=== PATIENT | female | born 1970 | race African-American/Black ===

== ENCOUNTER 2016-10-01 01:19 | Emergency (ER) | payer OTHER ==
[~2016-10-01] VITALS: Ht 160 cm; Wt 83.5 kg
[~2016-10-01 01:19] MED LIST: ATOR20TA58 PO; HYDR12.58 PO; IBUP-1060 PO; LISI20TA PO; LOSA50TA6 PO; OXYC1TAB7 PO; SIMV20TA3 PO
[2016-10-01] MEDS ORDERED: DEXAMETHASONE 4 MG TABLET PO ONE (02:30)
--- NOTE | 2016-10-01 03:05 | PHYS DOC ---
Past Medical History Past Medical History: Hypertension Past Surgical History: No Surgical History Alcohol Use: Rarely Drug Use: None Adult General Chief Complaint Chief Complaint: MULTIPLE COMPLAINTS HPI HPI Patient is a 45 year old female who presents with rhinorrhea, nasal congestion , sore throat, dry cough, myalgias, and chills for the past week. She also reports developing left eye redness without eye pain over the same timeline. She has been taking [id number]-ssh-[id number] medications such as Sudafed, NyQuil, and other cough medicines for her symptoms. She has not been taking any antihypertensives for years. She denies chest pain, headache, numbness, tingling , weakness, back pain, abdominal pain, nausea or vomiting, diarrhea. Review of Systems Review of Systems Constitutional: Denies measured fever [] Eyes: Denies change in visual acuity or eye pain [] HENT: Has nasal congestion and sore throat [] Respiratory: Denies shortness of breath [] Cardiovascular: No additional information not addressed in HPI [] GI: Denies abdominal pain, nausea, vomiting, bloody stools or diarrhea [] : Denies dysuria or hematuria [] Musculoskeletal: Denies back pain or joint pain [] Integument: Denies rash or skin lesions [] Neurologic: Denies headache, focal weakness or sensory changes [] Endocrine: Denies polyuria or polydipsia [] Current Medications Current Medications Current Medications Medications (Trade) Dose Ordered Sig/[facility] Start Time Stop Time Status Last Admin Dose Admin Dexamethasone (Decadron) 10 mg 1X ONCE 10/01/16 02:30 10/01/16 02:31 DC 10/01/16 02:21 10 MG Allergies Allergies Allergies Coded Allergies Type Severity Reaction Last Updated Verified No Known Drug Allergies 08/31/13 No Physical Exam Physical Exam Constitutional: Well developed, well nourished, no acute distress, non-toxic appearance. [] HENT: Normocephalic, atraumatic, bilateral TMs normal, oropharynx moist, few bilateral white oral exudates, nose normal. [] Eyes: PERRLA, EOMI, conjunctiva normal, no discharge. Mild left scleral injection [] Neck: Normal range of motion, supple, no stridor. [] Cardiovascular:Heart rate regular rhythm [] Lungs & Thorax: Bilateral breath sounds clear to auscultation [] Abdomen: Bowel sounds normal, soft, no tenderness. [] Skin: Warm, dry, no erythema, no rash. [] Back: No tenderness, no CVA tenderness. [] Extremities: ROM intact, no edema. [] Neurologic: Alert and oriented X 3, normal motor function, normal sensory function, no focal deficits noted. [] Psychologic: Affect normal, judgement normal, mood normal. [] Current Patient Data Vital Signs Vital Signs Date Time Temp Pulse Resp B/P Pulse Ox O2 Delivery O2 Flow Rate FiO2 10/01/16 03:20 81 202/114 98 Room Air 10/01/16 01:59 98.9 16 98.9 Lab Values Laboratory Tests Test 10/01/16 01:35 Group A Streptococcus Rapid Negative (NEGATIVE) Microbiology 10/01/16 Throat Culture - Preliminary, Resulted 10/01/16 - Preliminary, Resulted Course & Med Decision Making Course & Med Decision Making Rapid strep is negative. She has a constellation of symptoms concerning for viral pharyngitis and upper respiratory infection. Discussed she needs to quit taking rweg-irg-clfudgq medicines that cause worsening of her chronic uncontrolled hypertension. Discussed she needs to see her primary care doctor immediately to restart therapy. She states she has an appointment for this within a week. She does not want to undergo workup for her asymptomatic hypertension while in the emergency department. Discussed other avenues of symptomatic care such as nasal saline rinses, honey for cough, NSAIDs and Tylenol. Return precautions given. She understands and agrees with plan. Dragon Disclaimer Dragon Disclaimer This electronic medical record was generated, in whole or in part, using a voice recognition dictation system. Departure Departure Impression: Primary Impression: Upper respiratory infection Additional Impression: Uncontrolled hypertension Disposition: HOME, SELF-CARE Condition: STABLE Referrals: NO PCP (PCP) Patient Instructions: Upper Respiratory Infection, Adult, [id number] Additional Instructions: Take Tylenol or ibuprofen as needed for pain. You must follow-up with your primary care doctor to resume your blood pressure medicines. Return for any concerns. Problem Qualifiers Primary Impression: Upper respiratory infection URI type: unspecified viral URI Qualified Code: J06.9 - Acute upper respiratory infection, unspecified Andre ZARATE MD Oct 01, 2016 03:05
[2016-10-01 03:20] VITALS: BP 202/114
[2016-10-01 07:41] LABS: NEGATIVE OBC STREP NEG; POSITIVE OBC STREP POS
== END 2016-10-01 03:23 | disposition home or self-care (01) ==
LOC: ER 01:19
DX: J06.9 Acute upper respiratory infection, unspecified (principal); I10 Essential (primary) hypertension; H57.8 Other specified disorders of eye and adnexa
CPT/HCPCS: 87070; 87880; 99283; J8540

== ENCOUNTER 2017-11-23 19:16 | Emergency (ER) | payer SELFPAY, OTHER ==
[2017-11-23 19:44] LABS: ADD MAN DIFF? NO
[2017-11-23 19:48] LABS: BILIRUBIN,URINE NEGATIVE (NEG); CLARITY,URINE CLEAR; COLOR,URINE YELLOW; GLUCOSE,URINE NEGATIVE (NEG); NITRITE,URINE NEGATIVE (NEG); PROTEIN,URINE NEGATIVE (NEG-TRACE); UROBILINOGEN,URINE 0.2 mg/dL (0.2 mg/dL)
[2017-11-23 19:49] LABS: BASO # 0.1 x10^3/uL (0.0-0.2); BASO % 1 % (0-3); EOS # 0.3 x10^3/uL (0.0-0.7); EOS % 4 % (0-3); HEMATOCRIT 40.4 % (36.0-47.0); HEMOGLOBIN 13.1 g/dL (12.0-15.5); LYMPH # 3.1 x10^3/uL (1.0-4.8); LYMPH % 46 % (24-48); MEAN CORPUSCULAR HEMOGLOBIN 21 pg (25-35); MEAN CORPUSCULAR HGB CONC 32 g/dL (31-37); MEAN CORPUSCULAR VOLUME 64 fL (79-100); MONO # 0.5 x10^3/uL (0.0-1.1); MONO % 8 % (0-9); NEUT # 2.8 x10^3uL (1.8-7.7); NEUT % 42 % (31-73); PLATELET COUNT 313 x10^3/uL (140-400); RED BLOOD COUNT 6.35 x10^6/uL (3.50-5.40); RED CELL DISTRIBUTION WIDTH 18.5 % (11.5-14.5); WHITE BLOOD COUNT 6.7 x10^3/uL (4.0-11.0)
[2017-11-23] MEDS: ONDANSETRON PF 4 MG/2 ML VIAL. IV (19:53)
[2017-11-23 19:54] LABS: ANION GAP 10 (6-14); BLOOD UREA NITROGEN 14 mg/dL (7-20); BUN/CREATININE RATIO 18 (6-20); CALCIUM 9.3 mg/dL (8.5-10.1); CARBON DIOXIDE 27 mmol/L (21-32); CHLORIDE 104 mmol/L (98-107); CREATININE 0.8 mg/dL (0.6-1.0); GLUCOSE 104 mg/dL (70-99); POTASSIUM 4.4 mmol/L (3.5-5.1); SODIUM 141 mmol/L (136-145)
[2017-11-23] MEDS: KETOROLAC 30 MG/ML INJ. IV (19:54)
[2017-11-23 20:00] LABS: ALBUMIN 3.4 g/dL (3.4-5.0); ALBUMIN/GLOBULIN RATIO 0.9 (1.0-1.7); ALK PHOS 93 U/L (46-116); ALT (SGPT) 20 U/L (14-59); AST (SGOT) 14 U/L (15-37); LIPASE 359 U/L (73-393); TOTAL BILIRUBIN 0.3 mg/dL (0.2-1.0); TOTAL PROTEIN 7.4 g/dL (6.4-8.2)
[2017-11-23 20:02] LABS: TROPONINI 0.017 ng/mL (0.000-0.055)
[2017-11-23 20:13] LABS: RBC,URINE 0 /HPF (0-2)
[2017-11-23 20:14] LABS: BACTERIA,URINE MANY /HPF (0-FEW); SQUAMOUS EPITHELIAL CELL,UR OCC /LPF
[2017-11-23 21:11] LABS: PLT ESTIMATE ADEQUATE (ADEQUATE)
[2017-11-23 21:12] LABS: ANISOCYTOSIS SLIGHT; HYPOCHROMIA MARKED; MICROCYTOSIS MARKED; POIKILOCYTOSIS SLIGHT
== END 2017-11-23 21:37 | disposition home or self-care (01) ==
LOC: ER 19:16
DX: N12 Tubulo-interstitial nephritis, not specified as acute or chronic (principal); I10 Essential (primary) hypertension; E66.9 Obesity, unspecified; Z68.31 Body mass index [BMI] 31.0-31.9, adult
CPT/HCPCS: 36415; 80053; 81001; 83690; 84484; 85025; 87086; 93005; 96374; 96375; 99285-25; J1885; J2405

== ENCOUNTER 2019-02-02 11:57 | Emergency (ER) | payer BC, SELFPAY ==
[~2019-02-02] VITALS: Ht 160 cm; Wt 79.4 kg
[~2019-02-02 11:57] MED LIST changes: +CEPH-264 PO; +LOSA-73 PO; -LOSA50TA6 PO
[2019-02-02 12:12] VITALS: BP 167/117
[2019-02-02] MEDS ORDERED: FAMOTIDINE 20 MG TABLET. PO ONE (12:15)
[2019-02-02] MEDS ORDERED: predniSONE 10 MG TABLET PO ONE (12:15)
[2019-02-02] MEDS ORDERED: HYDR25TA PO (12:20)
[2019-02-02] MEDS ORDERED: BETA15OI6 TP (12:20)
[2019-02-02] MEDS ORDERED: METH4TAB2 PO (12:20)
--- NOTE | 2019-02-02 12:20 | PHYS DOC ---
Past Medical History Past Medical History: Hypertension Past Surgical History: No Surgical History Alcohol Use: Rarely Drug Use: None Adult General Chief Complaint Chief Complaint: SKIN PROBLEM HPI HPI Patient is a 48 year old female who presents with complaining of rash with itching. Patient states she developed a gradual onset pruritic rash 1 week ago after she worked at her yard. Patient denies fever and chills, shortness of breath, history of the same problem. Patient states she has painful area of rash because of itching. Review of Systems Review of Systems Constitutional: Denies fever or chills [] Eyes: Denies change in visual acuity, redness, or eye pain [] HENT: Denies nasal congestion or sore throat [] Respiratory: Denies cough or shortness of breath [] Cardiovascular: No additional information not addressed in HPI [] GI: Denies abdominal pain, nausea, vomiting, bloody stools or diarrhea [] : Denies dysuria or hematuria [] Musculoskeletal: Denies back pain or joint pain [] Integument: Reports rash and itching Neurologic: Denies headache, focal weakness or sensory changes [] Endocrine: Denies polyuria or polydipsia [] All other systems were reviewed and found to be within normal limits, except as documented in this note. Current Medications Current Medications Current Medications Medications (Trade) Dose Ordered Sig/[facility] Start Time Stop Time Status Last Admin Dose Admin Famotidine (Pepcid) 20 mg 1X ONCE 02/02/19 12:15 02/02/19 12:16 DC 02/02/19 12:22 20 MG Prednisone (Prednisone) 50 mg 1X ONCE 02/02/19 12:15 02/02/19 12:16 DC 02/02/19 12:22 50 MG Allergies Allergies Allergies Coded Allergies Type Severity Reaction Last Updated Verified No Known Drug Allergies 08/31/13 No Physical Exam Physical Exam Constitutional: Well developed, well nourished, mild distress, non-toxic appearance. [] HENT: Normocephalic, atraumatic. Eyes: PERRLA, EOMI, conjunctiva normal, no discharge. [] Neck: Normal range of motion, no tenderness, supple, no stridor. [] Cardiovascular:Heart rate regular rhythm, no murmur [] Lungs & Thorax: Bilateral breath sounds clear to auscultation [] Skin: Warm, dry, no erythema, marked area of insect bite rash in lower and upper extremity and abdominal wall and groin area without sign of infection Back: No tenderness, no CVA tenderness. [] Extremities: No tenderness, no cyanosis, no clubbing, ROM intact, no edema. [] Neurologic: Alert and oriented X 3, normal motor function, normal sensory function, no focal deficits noted. [] Psychologic: Affect anxious, judgement normal, mood normal. [] Current Patient Data Vital Signs Vital Signs Date Time Temp Pulse Resp B/P (MAP) Pulse Ox O2 Delivery O2 Flow Rate FiO2 02/02/19 12:12 98.2 87 20 167/117 (134) 97 Room Air 98.2 EKG EKG [] Radiology/Procedures Radiology/Procedures [] Course & Med Decision Making Course & Med Decision Making I've spoken with the patient and/or caregivers. I've explained the patient's condition, diagnosis and treatment plan based on information available to me at this time. I've answered the patient's and/or caregivers questions and addressed any concerns. The patient and/or caregivers have a good understanding the patient's diagnosis, condition and treatment plan as can be expected at this point. Vital signs have been stabilized. The patient's condition is stable for discharge from the emergency department. The patient will pursue further outpatient evaluation with her primary care provider or other designated consulting physician as outlined in the discharge instructions. Patient and/or caregivers are agreeable to this plan of care and follow-up instructions have been explained in detail. The patient and/or caregivers have received these instructions in written format and expressed understanding of these discharge instructions. The patient and her caregivers are aware that if any significant change in condition or worsening of symptoms should prompt him to immediately return to this of the closest emergency department. If an emergent department is not readily available I would encourage him to call 911. Lynn Disclaimer Dragon Disclaimer This electronic medical record was generated, in whole or in part, using a voice recognition dictation system. Departure Departure Impression: Primary Impression: Chigger bites Additional Impression: Uncontrolled hypertension Disposition: 01 HOME, SELF-CARE Condition: STABLE Referrals: NO PCP (PCP) Patient Instructions: Insect Bite Additional Instructions: Drink plenty of liquids Follow-up with your primary care physician in 3-5 days Return to ER if not getting better Scripts Methylprednisolone (MEDROL) 4 Mg Tab.ds.pk 1 PKG PO UD for inflammation, #1 PKG Prov: YULIYA FINE MD 02/02/19 Hydroxyzine Hcl (HYDROXYZINE HCL) 25 Mg Tablet 1 TAB PO TID PRN for itching, #30 TAB Prov: YULIYA FINE MD 02/02/19 Betamethasone/Propylene Glyc (BETAMETHASONE DP AUG 0.05% OIN) 15 Gm Oint...g. 1 GM TP BID, #60 MISC Prov: YULIYA FINE MD 02/02/19 Problem Qualifiers YULIYA FINE MD Feb 02, 2019 12:20
== END 2019-02-02 12:43 | disposition home or self-care (01) ==
LOC: ER 11:57
DX: S30.861A Insect bite (nonvenomous) of abdominal wall, initial encounter (principal); S80.869A Insect bite (nonvenomous), unspecified lower leg, initial encounter; S60.569A Insect bite (nonvenomous) of unspecified hand, initial encounter; I10 Essential (primary) hypertension; W57.XXXA Bitten or stung by nonvenomous insect and other nonvenomous arthropods, initial encounter; Y93.89 Activity, other specified; Y92.89 Other specified places as the place of occurrence of the external cause; Y99.8 Other external cause status
CPT/HCPCS: 99283; J7512

== ENCOUNTER → 2020-10-08 | Outpatient (CLI) | payer BC ==
[~2020-10-08] MED LIST changes: +BETA15OI6 TP; +HYDR25TA PO; +METH4TAB2 PO; +SIMV20TA18 PO; -SIMV20TA3 PO
== END ==
LOC: MAMMO 09:50
PROVIDERS: ATTEND Family Medicine
DX: Z12.31 Encounter for screening mammogram for malignant neoplasm of breast (principal)
CPT/HCPCS: 77067

== ENCOUNTER → 2021-03-29 | Outpatient (CLI) | payer OTHER ==
--- NOTE | 2021-03-30 18:53 | CARD ---
MR#: [id number] Date of Study: 03/29/2021 Ordering Physician: Jaquan HA, Referring Physician: Patsy VILLALPANDO: Prasanna Rabago [facility] APPROVED REPORT EXAM: Two-dimensional and M-mode echocardiogram with Doppler and color Doppler. Other Information Quality : AverageHR: 50bpm Rhythm : Bradycardia INDICATION Murmur RISK FACTORS Obesity 2D DIMENSIONS Left Atrium(2D)3.7 (1.6-4.0cm)IVSd1.4 (0.7-1.1cm) Aortic Root(2D)3.3 (2.0-3.7cm)LVDd4.6 (3.9-5.9cm) LVOT Diameter2.0 (1.8-2.4cm)PWd1.4 (0.7-1.1cm) LA Imqvaz05 (18-58mL)LVDs2.7 (2.5-4.0cm) FS (%) 41.2 %SV68.8 ml Aortic Valve AoV Peak Luis.155.1cm/sAoV VTI36.1cm AO Peak GR.9.6mmHgLVOT Peak Luis.91.6cm/s AO Mean GR.5mmHgAVA (VMAX)1.85cm2 Mitral Valve MV E Jyxauvkq96.9cm/sMV E Peak Gr.3mmHg MV DECEL [id number] A Lfcarcgb76.6cm/s MV E Mean Gr.1mmHgE/A Ratio1.1 Pulmonary Valve PV Peak Esrtqgaf81.2cm/s Tricuspid Valve TR P. Zmbfgprm969ix/sTR Peak Gr.24mmHg Pulmonary Vein S1 Azjzkmnt74.7cm/sD2 Iwlcttxw17.5cm/s LEFT VENTRICLE The left ventricle is normal size. There is mild concentric left ventricular hypertrophy. The left ve ntricular systolic function is normal. Ejection fraction is 55 to 60%. There is normal LV segmental wall motion. Tissue Doppler imaging reveals abnormal left ventricular diastolic dysfunction. No left ventricle thrombus noted on this study. There is no ventricular septal defect visualized. There is no left ventricular aneurysm. There is no mass noted in the left ventricle. RIGHT VENTRICLE The right ventricle is normal size. There is normal right ventricular wall thickness. The right ventr icular systolic function is normal. ATRIA The left atrium is mildly dilated. The right atrium size is normal. The interatrial septum is intact with no evidence for an atrial septal defect or patent foramen ovale as noted on 2-D or Doppler imagi ng. AORTIC VALVE The aortic valve is normal in structure and function. Doppler and Color Flow revealed no significant aortic regurgitation. There is no significant aortic valvular stenosis. There is no aortic valvular v egetation. MITRAL VALVE The mitral valve is normal in structure and function. There is no evidence of mitral valve prolapse. There is no mitral valve stenosis. Doppler and Color-flow revealed mild mitral regurgitation. TRICUSPID VALVE The tricuspid valve is normal in structure and function. Doppler and Color Flow revealed mild tricusp id regurgitation. There is no tricuspid valve prolapse or vegetation. There is no tricuspid valve [place] nosis. PULMONIC VALVE The pulmonary valve is normal in structure and function. Doppler and Color Flow revealed no pulmonic valvular regurgitation. There is no pulmonic valvular stenosis. GREAT VESSELS The aortic root is normal in size. The ascending aorta is normal in size. The pulmonary artery is nor mal. The IVC is normal in size and collapses >50% with inspiration. PERICARDIAL EFFUSION There is no pleural effusion. There is no evidence of significant pericardial effusion. Critical Notification Critical Value: No <Conclusion> The left ventricle is normal size. The left ventricular systolic function is normal. Ejection fraction is 55 to 60%. There is mild concentric left ventricular hypertrophy. Doppler and Color Flow revealed no significant aortic regurgitation. There is no significant aortic valvular stenosis. Doppler and Color-flow revealed mild mitral regurgitation. Doppler and Color Flow revealed mild tricuspid regurgitation. Signed by : John Bernardo MD Electronically Approved : 03/30/2021 18:53:12
== END ==
LOC: ECHO 08:52
PROVIDERS: ATTEND Family Medicine
DX: I08.1 Rheumatic disorders of both mitral and tricuspid valves (principal)
CPT/HCPCS: 93306